=== PATIENT | female | born 1990 | race African-American/Black ===

== ENCOUNTER 2019-09-04 19:01 | Emergency (ER) | payer MEDICAID ==
[~2019-09-04] VITALS: Ht 160 cm; Wt 55.8 kg
[2019-09-04 19:20] VITALS: BP 127/67
--- NOTE | 2019-09-04 19:25 | NUR ---
PT AMBULATED TO LOBBY WITH STEADY GAIT
--- NOTE | 2019-09-04 19:55 | NUR ---
pt ambulated to bed
--- NOTE | 2019-09-04 20:08 | NUR ---
29 YEAR OLD FEMALE COMPLAINS OF SOME ANXIETY AND MUSCLE TENSION THROUGHOUT BODY. PATIENT ALSO NOTES THAT HER ABDOMEN FEELS SORE, BUT DOES NOT HAVE ANY PAIN. PATIENT DENIES NAUSEA, VOMITTING, AND DIARRHEA. PATIENT DENIES SOB AND CHEST PAIN. PATIENT AOX4, BREATHING EVEN AND UNLABORED, SKIN WARM AND DRY. BED IN LOWEST POSITION, LOCKED, BED RAIL UPX1. PMH - BIPOLAR ALLERGIES - NKA
--- NOTE | 2019-09-04 20:51 | NUR ---
Dr. Ritter examining patient.
[2019-09-04] MEDS ORDERED: FLUORESCEIN OPTH STRIP 1 MG OP ONE (20:55)
[2019-09-04 21:27] VITALS: BP 125/62
--- NOTE | 2019-09-04 21:31 | NUR ---
Patient discharged with v/s stable. Written and verbal after care instructions ABOUT ANXIETY AND PANIC ATTACKS given and explained. Patient alert, oriented and verbalized understanding of instructions. Ambulatory with steady gait. All questions addressed prior to discharge. ID band removed. Patient advised to follow up with PMD. Rx of ATARAX given. Patient educated on indication of medication including possible reaction and side effects. Opportunity to ask questions provided and answered.
== END 2019-09-04 21:31 | disposition home or self-care (01) ==
LOC: MED 19:01
DX: F41.9 Anxiety disorder, unspecified (principal); H57.12 Ocular pain, left eye; F31.9 Bipolar disorder, unspecified
CPT/HCPCS: 99284